=== PATIENT | male | born 1975 | race Caucasian/White ===

== ENCOUNTER 2024-07-20 04:53 | Emergency (ER) | payer SELFPAY ==
[2024-07-20] MEDS: Sodium Chloride 0.9% 10 ML Syringe FLUSH PRN (05:20)
[2024-07-20] MEDS: Sodium Chloride 0.9% 1,000 ML IV ONE (05:30)
[2024-07-20 05:33] LABS: BASOPHILS PERCENT AUTO 0.3 % (0.3-3.8); EOSINOPHILS ABSOLUTE AUTO 0.3 x10-3/uL (0.0-0.6); EOSINOPHILS PERCENT AUTO 3.5 % (0.1-6.8); HEMATOCRIT 45.6 % (38.3-50.1); HEMOGLOBIN 15.9 g/dL (12.9-17.7); LYMPHOCYTES ABSOLUTE AUTO 2.5 x10-3/uL (0.5-4.5); LYMPHOCYTES PERCENT AUTO 33.8 % (15.8-45.3); MEAN CORPUSCULAR HEMOGLOBIN 32.3 pg (27.0-33.3); MEAN CORPUSCULAR HGB CONC 34.9 g/dL (28.7-35.3); MEAN CORPUSCULAR VOLUME 92.7 fL (80.8-98.7); MEAN PLATELET VOLUME 8.1 fL (6.7-11.0); MONOCYTES ABSOLUTE AUTO 0.6 x10-3/uL (0.0-1.2); MONOCYTES PERCENT AUTO 8.5 % (5.5-15.2); NEUTROPHILS ABSOLUTE AUTO 3.9 x10-3/uL (1.7-6.9); NEUTROPHILS PERCENT AUTO 53.9 % (40.3-71.8); PLATELET COUNT,PLT 202 x10(3)uL (117-477); RED BLOOD CELL COUNT 4.92 x10(6)uL (3.90-5.90); RED CELL DISTRIBUTION WIDTH 12.6 % (12.4-15.0); WHITE BLOOD CELL COUNT,WBC 7.3 x10-3/uL (3.2-10.1)
[2024-07-20 05:37] LABS: BLOOD UREA NITROGEN,BUN 13 mg/dL (7-18); BUN/CREATININE RATIO 9.3 (9-20); CARBON DIOXIDE,CO2 22 mmol/L (21-32); CHLORIDE,CL 106 mmol/L (100-110); CREATININE 1.4 mg/dL (0.70-1.30); ESTIMATED GFR 62 mL/min (>60); GLUCOSE RANDOM 138 mg/dL (80-116); POTASSIUM,K 3.4 mmol/L (3.5-5.3); SODIUM,NA 143 mmol/L (135-145)
[2024-07-20 05:43] LABS: A/G RATIO 1.3; ALANINE AMINOTRANSFERASE,ALT 31 U/L (12-36); ALBUMIN 3.5 g/dL (3.5-5.2); ALKALINE PHOSPHATASE 78 IU/L (56-112); ASPARTATE AMNIOTRANSFERASE,AST 12 IU/L (5-25); BILIRUBIN TOTAL 0.6 mg/dL (0.1-1.3); PROTEIN TOTAL,TP 6.2 g/dL (6.0-8.0)
[2024-07-20 06:56] LABS: SALICYLATE 4.6 mg/dL (<2.8)
[2024-07-20 06:59] LABS: ACETAMINOPHEN < 2 ug/mL (<2)
== END 2024-07-20 08:30 | disposition home or self-care (01) ==
LOC: FB.ED 04:53
DX: T44.6X1A Poisoning by alpha-adrenoreceptor antagonists, accidental (unintentional), initial encounter (principal); F17.210 Nicotine dependence, cigarettes, uncomplicated; Z91.040 Latex allergy status; Z79.899 Other long term (current) drug therapy
CPT/HCPCS: 36415; 80053; 80143; 80179; 85025; 96360; 99284-25; J7030

== ENCOUNTER 2024-08-14 00:55 | Emergency (ER) | payer MEDICAID ==
[2024-08-14 01:53] LABS: BLOOD UREA NITROGEN,BUN 11 mg/dL (7-18); CALCIUM 8.7 mg/dL (8.6-10.2); CARBON DIOXIDE,CO2 25 mmol/L (21-32); CHLORIDE,CL 106 mmol/L (100-110); CREATININE 1.1 mg/dL (0.70-1.30); ESTIMATED GFR 82 mL/min (>60); GLUCOSE RANDOM 94 mg/dL (80-116); POTASSIUM,K 3.6 mmol/L (3.5-5.3); SODIUM,NA 142 mmol/L (135-145)
[2024-08-14 01:59] LABS: A/G RATIO 1.5; ALANINE AMINOTRANSFERASE,ALT 59 U/L (12-36); ALBUMIN 3.9 g/dL (3.5-5.2); ALKALINE PHOSPHATASE 83 IU/L (56-112); ASPARTATE AMNIOTRANSFERASE,AST 30 IU/L (5-25); BILIRUBIN TOTAL 1.4 mg/dL (0.1-1.3); PROTEIN TOTAL,TP 6.5 g/dL (6.0-8.0)
[2024-08-14 02:00] LABS: BASOPHILS PERCENT AUTO 0.2 % (0.3-3.8); EOSINOPHILS ABSOLUTE AUTO 0.4 x10-3/uL (0.0-0.6); EOSINOPHILS PERCENT AUTO 3.9 % (0.1-6.8); HEMATOCRIT 42.2 % (38.3-50.1); HEMOGLOBIN 14.6 g/dL (12.9-17.7); LYMPHOCYTES ABSOLUTE AUTO 2.2 x10-3/uL (0.5-4.5); LYMPHOCYTES PERCENT AUTO 23.3 % (15.8-45.3); MEAN CORPUSCULAR HEMOGLOBIN 32.7 pg (27.0-33.3); MEAN CORPUSCULAR HGB CONC 34.6 g/dL (28.7-35.3); MEAN CORPUSCULAR VOLUME 94.3 fL (80.8-98.7); MEAN PLATELET VOLUME 8.1 fL (6.7-11.0); MONOCYTES ABSOLUTE AUTO 0.8 x10-3/uL (0.0-1.2); MONOCYTES PERCENT AUTO 7.9 % (5.5-15.2); NEUTROPHILS ABSOLUTE AUTO 6.1 x10-3/uL (1.7-6.9); NEUTROPHILS PERCENT AUTO 64.6 % (40.3-71.8); PLATELET COUNT,PLT 239 x10(3)uL (117-477); RED BLOOD CELL COUNT 4.47 x10(6)uL (3.90-5.90); RED CELL DISTRIBUTION WIDTH 12.7 % (12.4-15.0); WHITE BLOOD CELL COUNT,WBC 9.5 x10-3/uL (3.2-10.1)
[2024-08-14] MEDS: DULoxetine 60 MG Cap PO ONE (02:02)
[2024-08-14 02:09] LABS: TSH ULTRASENSITIVE 1.23 IU/mL (0.36-3.74)
[2024-08-14 02:09] LABS: AMPHETAMINES SCREEN, URINE NEGATIVE (NEGATIVE); BARBITURATE SCREEN,URINE NEGATIVE (NEGATIVE); BENZODIAZEPINES SCREEN,URINE NEGATIVE (NEGATIVE); METHADONE SCREEN, URINE NEGATIVE (NEGATIVE); METHAMPHETAMINE SCREEN, URINE NEGATIVE (NEGATIVE); OXYCODONE SCREEN,URINE NEGATIVE (NEGATIVE); THC SCREEN,URINE POSITIVE (NEGATIVE)
[2024-08-14 02:10] LABS: BUPRENORPHINE SCREEN,URINE NEGATIVE (NEGATIVE)
[2024-08-14 02:12] LABS: ETHANOL BLOOD MEDICAL < 0.03 % (<0.03)
[2024-08-14] MEDS: LORazepam 2 MG/ML SDV IM ONE (02:44)
[2024-08-14] MEDS: OLANZapine 10 MG Vial IM ONE (02:44)
[2024-08-15 19:50] LABS: THYROXINE, TOTAL T4 7.29 ug/dL (4.50-11.70)
== END 2024-08-14 10:45 ==
LOC: FB.ED 00:55
DX: F23 Brief psychotic disorder (principal); Z91.040 Latex allergy status; Z79.899 Other long term (current) drug therapy; Z86.16 Personal history of COVID-19
CPT/HCPCS: 36415; 80053; 80307; 84436; 84443; 85025; 96372; 99285; A9270-GY; J2060; J2359

== ENCOUNTER 2025-05-13 10:00 | Emergency (ER) | payer MEDICAID ==
[2025-05-13 10:53] LABS: BASOPHILS ABSOLUTE AUTO 0.1 x10-3/uL (0.0-0.3); BASOPHILS PERCENT AUTO 0.5 % (0.3-3.8); EOSINOPHILS ABSOLUTE AUTO 0.5 x10-3/uL (0.0-0.6); EOSINOPHILS PERCENT AUTO 5.1 % (0.1-6.8); LYMPHOCYTES ABSOLUTE AUTO 2.3 x10-3/uL (0.5-4.5); LYMPHOCYTES PERCENT AUTO 22.1 % (15.8-45.3); MEAN PLATELET VOLUME 8.2 fL (6.7-11.0); MONOCYTES ABSOLUTE AUTO 0.8 x10-3/uL (0.0-1.2); MONOCYTES PERCENT AUTO 7.2 % (5.5-15.2); NEUTROPHILS ABSOLUTE AUTO 6.8 x10-3/uL (1.7-6.9); NEUTROPHILS PERCENT AUTO 65.1 % (40.3-71.8); PLATELET COUNT,PLT 249 x10(3)uL (117-477); RED BLOOD CELL COUNT 4.94 x10(6)uL (3.90-5.90); RED CELL DISTRIBUTION WIDTH 12.1 % (12.4-15.0); WHITE BLOOD CELL COUNT,WBC 10.5 x10-3/uL (3.2-10.1)
[2025-05-13 11:01] LABS: BLOOD UREA NITROGEN,BUN 17 mg/dL (7-18); CARBON DIOXIDE,CO2 26 mmol/L (21-32); CHLORIDE,CL 105 mmol/L (100-110); CREATININE 1.1 mg/dL (0.70-1.30); EST CRCL DRUG DOSING (CG) 77.73 mL/min; ESTIMATED GFR 82 mL/min (>60); GLUCOSE RANDOM 106 mg/dL (80-116); POTASSIUM,K 4.5 mmol/L (3.5-5.3); SODIUM,NA 141 mmol/L (135-145)
[2025-05-13 11:06] LABS: A/G RATIO 1.6; ALANINE AMINOTRANSFERASE,ALT 34 U/L (12-36); ASPARTATE AMNIOTRANSFERASE,AST 21 IU/L (5-25); BILIRUBIN TOTAL 1.3 mg/dL (0.1-1.3); PROTEIN TOTAL,TP 7.0 g/dL (6.0-8.0)
[2025-05-13 11:16] LABS: ETHANOL BLOOD MEDICAL < 0.03 % (<0.03)
[2025-05-13 11:43] LABS: METHAMPHETAMINE SCREEN, URINE NEGATIVE (NEGATIVE)
[2025-05-13 11:44] LABS: AMPHETAMINES SCREEN, URINE NEGATIVE (NEGATIVE); BUPRENORPHINE SCREEN,URINE NEGATIVE (NEGATIVE); METHADONE SCREEN, URINE NEGATIVE (NEGATIVE); OXYCODONE SCREEN,URINE NEGATIVE (NEGATIVE)
[2025-05-13 14:18] LABS: TSH ULTRASENSITIVE 2.23 IU/mL (0.36-3.74)
[2025-05-14 22:16] LABS: THYROXINE, TOTAL T4 7.72 ug/dL (4.50-11.70)
== END 2025-05-13 14:06 ==
LOC: FB.ED 10:00
DX: F29 Unspecified psychosis not due to a substance or known physiological condition (principal); G47.00 Insomnia, unspecified; K21.9 Gastro-esophageal reflux disease without esophagitis; F41.1 Generalized anxiety disorder; F10.90 Alcohol use, unspecified, uncomplicated; F17.200 Nicotine dependence, unspecified, uncomplicated; Z91.040 Latex allergy status; Z79.899 Other long term (current) drug therapy; Z86.16 Personal history of COVID-19
CPT/HCPCS: 36415; 80053; 80143; 80179; 80307; 84436; 84443; 85025; 99285; A9270-GY